=== PATIENT | female | born 1960 | race Caucasian/White ===

== ENCOUNTER 2018-09-28 11:50 | Outpatient (CLI) | payer MEDICARE ==
[2018-09-28] VITALS (17 sets, daily range): BP systolic 104–151; BP diastolic 70–114
== END 2018-09-28 23:59 | disposition home or self-care (01) ==
LOC: CARD DIAG 11:50
PROVIDERS: ATTEND Internal Medicine Interventional Cardiology
DX: R42 Dizziness and giddiness (principal); R55 Syncope and collapse
CPT/HCPCS: 93660